=== PATIENT | female | born 1945 | race Caucasian/White ===

== ENCOUNTER 2017-09-18 19:23 | Observation (INO) | payer MEDICARE, OTHER ==
[2017-09-18] MEDS ORDERED: Sodium Chloride 0.9% 10 ML Syringe FLUSH PRN (19:31)
[2017-09-18] MEDS ORDERED: Sodium Chloride 0.9% 1,000 ML IV ONE (19:31)
[2017-09-18] MEDS ORDERED: Ondansetron 4 MG/2 ML SDV IVPUSH ONE (19:31)
--- NOTE | 2017-09-18 19:43 | EDM.PDOC ---
ED HPI GENERAL MEDICAL PROBLEM - General Chief Complaint: Abdominal Pain Stated Complaint: Epigastric pain, nausea Time Seen by Provider: 09/18/17 19:25 Source of Information: Reports: Patient, Family, RN, RN Notes Reviewed History Limitations: Reports: No Limitations - History of Present Illness INITIAL COMMENTS - FREE TEXT/NARRATIVE: Patient presents the emergency room at [facility] with an acute onset of epigastric abdominal pain that started around 6 PM this evening. The patient states that she felt nauseated and did have some dry heaving. The patient did take 2 baby aspirin as well as some Tums. The patient states she has not helped his pain in the past. 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 The patient also has a history of a cholecystectomy. The patient does not have any focal neurological deficits. The patient denies any shortness of breath. The patient denies any cardiac history. The patient denies any diarrhea. No UTI symptoms. Otherwise no other concerns. Onset: Today, Sudden Onset Date: 09/18/17 Onset Time: 18:00 Duration: Resolved Prior to Arrival Location: Reports: Abdomen (Epigastric) Quality: Reports: Burning Severity: Moderate Improves with: Reports: Rest Worsens with: Reports: None Associated Symptoms: Reports: Nausea/Vomiting Treatments BUSINESS ACCOUNT LEADER: Reports: Other (see below) (ASA and TUMS) Epigastric Pain Score (Numeric/FACES): 1 - Related Data Allergies Allergy/AdvReac Type Severity Reaction Status Date / Time alendronate sodium Allergy Swelling Verified 09/18/17 19:51 [From Fosamax] ED ROS GENERAL - Review of Systems Review Of Systems: See Below Constitutional: Denies: Fever, Chills, Weakness Respiratory: Denies: Shortness of Breath, Cough Cardiovascular: Denies: Chest Pain, Palpitations GI/Abdominal: Reports: Abdominal Pain (Epigastric), Nausea, Vomiting Skin: Reports: No Symptoms Neurological: Reports: No Symptoms ED EXAM, GI/ABD - Physical Exam Exam: See Below Exam Limited By: No Limitations General Appearance: Alert, No Apparent Distress Respiratory/Chest: No Respiratory Distress, Lungs Clear, Normal Breath Sounds Cardiovascular: Normal Peripheral Pulses, Regular Rate, Rhythm GI/Abdominal Exam: Soft, Guarding, Tender (Epigastric), Abnormal Bowel Sounds ( Hypoactive) Neurological: Alert, Oriented Skin Exam: Warm, Dry, Intact, Normal Color, No Rash EKG INTERPRETATION EKG Date: 09/18/17 Time: 19:26 Rhythm: NSR Rate (Beats/Min): 91 [place]: Normal P-Wave: Present QRS: Normal ST-T: Depressed QT: Normal ME/PQ Interval: 0.16 Comparison: NA - No Prior EKG EKG Interpretation Comments: 1. Sinus Rhythm with frequent PVC's 2. Possible left atrial enlargement 3. Moderate ST depression EKG #2: 1. Sinus Rhythm with occasional PVC 2. Possible left atrial enlargement 3. Septal TX, probably old Course - Vital Signs Last Recorded V/S: Last Vital Signs Temp 37.7 C 09/18/17 19:25 Pulse 91 09/18/17 19:25 Resp 20 09/18/17 19:25 BP 139/67 09/18/17 19:25 Pulse Ox 95 09/18/17 19:25 - Orders/Labs/Meds Orders: Active Orders 24 hr Category Date Time Status EKG 12 Lead [EKG Documentation Completion] [RC] STAT Care 09/18/17 19:32 Active EKG 12 Lead [EKG Documentation Completion] [RC] STAT Care 09/18/17 21:19 Active Chest 2V [CR] Stat Exams 09/18/17 19:32 Ordered Sodium Chloride 0.9% [Saline Flush] Med 09/18/17 19:31 Active 10 ml FLUSH ASDIRECTED PRN Peripheral IV Insertion Adult [OM.PC] Routine Oth 09/18/17 19:31 Ordered Medication Orders Sodium Chloride (Saline Flush) 10 ml FLUSH ASDIRECTED PRN PRN Reason: Keep Vein Open Labs: Laboratory Tests 09/18/17 09/18/17 Range/Units 20:02 20:02 WBC 10.5 H (4.0-10.0) x10^3/uL RBC 4.71 (4.00-5.50) x10^6/uL Hgb 14.0 (12.0-16.0) g/dL Hct 41.9 (33.0-47.0) % MCV 89.0 (78.0-93.0) fL MCH 29.7 (26.0-32.0) pg MCHC 33.4 (32.0-36.0) g/dL RDW Coeff of Ruben 13.5 (10.0-15.0) % Plt Count 212 (130-400) x10^3/uL Neut % (Auto) 86.9 H (50.0-80.0) % Lymph % (Auto) 6.5 L (25.0-50.0) % [place] % (Auto) 5.9 (2.0-11.0) % Eos % (Auto) 0.6 (0.0-4.0) % Baso % (Auto) 0.1 L (0.2-1.2) % Sodium 139 (136-145) mmol/L Potassium 4.6 (3.5-5.1) mmol/L Chloride 104 (98-107) mmol/L Carbon Dioxide 26 (21-32) mmol/L BUN 27 H (7-18) mg/dL Creatinine 1.1 H (0.55-1.02) mg/dL Est Cr Clr Drug Dosing 36.56 mL/min Estimated GFR (MDRD) 49 Glucose 114 H (74-106) mg/dL Calcium 8.0 L (8.5-10.1) mg/dL Magnesium 1.8 (1.8-2.4) mg/dL Creatine Kinase 141 (26-192) U/L Creatine Kinase Index 1.1 (0.0-4.0) % CK-MB (CK-2) 1.5 (0.0-3.6) ng/mL Troponin I 0.057 H* (<=0.056) ng/mL Amylase 56 (25-115) U/L Lipase 75 (73-393) U/L Meds: Medications Generic Name Dose Route Start Last Admin Trade Name Freq PRN Reason Stop Dose Admin Sodium Chloride 10 ml 09/18/17 19:31 Saline Flush FLUSH ASDIRECTED PRN Keep Vein Open Discontinued Medications Generic Name Dose Route Start Last Admin Trade Name Freq PRN Reason Stop Dose Admin Sodium Chloride 1,000 mls @ 999 mls/hr 09/18/17 19:31 09/18/17 20:05 Normal Saline IV 09/18/17 20:31 999 mls/hr ONETIME ONE Administration Ondansetron HCl 4 mg 09/18/17 19:31 09/18/17 20:15 Zofran IVPUSH 09/18/17 19:32 4 mg ONETIME ONE Administration - Radiology Interpretation Free Text/Narrative:: CXR: No acute process - see scanned report in EMR Departure - Departure Time of Disposition: 22:45 Disposition: Refer to Observation Condition: Good Clinical Impression: Elevated troponin Chest pain Qualifiers: Chest pain type: unspecified Qualified Code(s): R07.9 - Chest pain, unspecified - Discharge Information ED Communication - ED Communication Date/Time Date: 09/18/17 Time Called: 21:57 - Discussed Case With (1) Discussed Case With (1): Outpatient Provider (Dr. Mckenzie, Practical Nurse Clinical Coordinator. Recommend monitoring patient on observation with labs/EKG) - Problem List Review Problem List Initiated/Reviewed/Updated: Yes - My Orders Last 24 Hours: My Active Orders 09/18/17 19:31 Sodium Chloride 0.9% [Saline Flush] 10 ml FLUSH ASDIRECTED PRN Peripheral IV Insertion Adult [OM.PC] Routine 09/18/17 19:32 EKG 12 Lead [EKG Documentation Completion] [RC] STAT Chest 2V [CR] Stat 09/18/17 21:19 EKG 12 Lead [EKG Documentation Completion] [RC] STAT - Assessment/Plan Admission H&P: Please use this note as an admission H&P Last 24 Hours: My Active Orders 09/18/17 19:31 Sodium Chloride 0.9% [Saline Flush] 10 ml FLUSH ASDIRECTED PRN Peripheral IV Insertion Adult [OM.PC] Routine 09/18/17 19:32 EKG 12 Lead [EKG Documentation Completion] [RC] STAT Chest 2V [CR] Stat 09/18/17 21:19 EKG 12 Lead [EKG Documentation Completion] [RC] STAT Plan: Patient will be admitted observation room 204 for chest pain R/O TX. Monitor serial labs with EKG. Patient aware and agrees to admission.
[2017-09-19] MEDS ORDERED: PENTOSAN POLYSULFATE SODIUM PO PRN (01:56)
[2017-09-19] MEDS ORDERED: Nitroglycerin 0.4 MG Tab.SL SL PRN (01:57)
[2017-09-19] MEDS ORDERED: Morphine 4 MG/ML Syringe IVPUSH PRN (01:57)
[2017-09-19] MEDS ORDERED: Ondansetron 4 MG Tab.DIS PO PRN (01:57)
[2017-09-19] MEDS: Enoxaparin 80 MG/0.8 ML Syringe SUBCUT SCH ×2 (02:00→11:20)
--- NOTE | 2017-09-19 02:07 | PCM.HP ---
H&P History of Present Illness - General Date of Service: 09/18/17 Admit Problem/Dx: Admission Diagnosis/Problem Admission Diagnosis/Problem Chest pain R/O [place] Elevated Troponin Source of Information: Patient, Family, RN, RN Notes Reviewed History Limitations: Reports: No Limitations - History of Present Illness Initial Comments - Free Text/Narative: Patient presented to the ED at [facility] this evening complaining of epigastric pain that started around 6pm. Patient states she took to baby ASA and tums, but this did not help. She states the pain lasted from 45m minutes. She continued to not feel well. She became nauseated, so she brought herself to the ED. Patient remained stable in the ED. IV access started. Patient was given IVF and Zofran. Troponin came back elevated, therefore she was admitted for serial monitoring of her Trops and EKG. Case was discussed with Dr. Reece, Cardiology [facility]. Symptom Onset Date: 09/18/17 Duration of Symptoms: Reports: Waxing/Waning Location: Reports: Chest, Abdomen Quality: Reports: Pressure, Throbbing Severity: Mild Epigastric Pain Score (Numeric/FACES): 1 - Related Data Allergies/Adverse Reactions: Allergies Allergy/AdvReac Type Severity Reaction Status Date / Time alendronate sodium Allergy Swelling Verified 09/18/17 19:51 [From Fosamax] Home Medications: Home Meds Ergocalciferol (Vitamin D2) [Vitamin D2] 1 each PO WEEKLY 09/19/17 [History] Pentosan Polysulfate Sodium [Elmiron] 1 tab PO DAILY PRN 09/19/17 [History] Simvastatin [Zocor] 1 tab PO DAILY 09/19/17 [History] Solifenacin Succinate [Vesicare] 1 tab PO DAILY PRN 09/19/17 [History] Valsartan/Hydrochlorothiazide [Diovan Hct 160-12.5 mg Tab] 160 mg PO DAILY 09/19 [History] Past Medical History Genitourinary History: Reports: None Musculoskeletal History: Reports: None Neurological History: Reports: None Hematologic History: Reports: B12 Deficiency Oncologic (Cancer) History: Reports: Breast - Past Surgical History GI Surgical History: Reports: Bariatric Procedure, Cholecystectomy, Colonoscopy Female Surgical History: Reports: Breast Biopsy, Cystoscopy Neurological Surgical History: Reports: Laminectomy Other Neurological Surgeries/Procedures: lumbar laminectomy Musculoskeletal Surgical History: Reports: Arthroscopic Procedure Other Musculoskeletal Surgeries/Procedures:: shoulder Oncologic Surgical History: Reports: Lumpectomy Dermatological Surgical History: Reports: None Social & Family History - Family History Cardiac: Reports: Hypertension Musculoskeletal: Reports: Other (See Below) Other Musculoskeletal Family History: unspecified Endocrine/Metabolic: Reports: Diabetes, Type I - Tobacco Use Smoking Status *Q: Former Smoker Used Tobacco, but Quit: Yes Month Tobacco Last Used: 08/1977 - Recreational Drug Use Recreational Drug Use: No H&P Review of Systems - Review of Systems: Review Of Systems: See Below General: Denies: Fever, Chills, Weakness Pulmonary: Denies: Shortness of Breath, Cough Cardiovascular: Reports: Chest Pain. Denies: Palpitations Gastrointestinal: Reports: Abdominal Pain, Nausea, Vomiting Skin: Reports: No Symptoms Neurological: Reports: No Symptoms. Denies: Dizziness, Headache Exam - Exam Exam: See Below - Vital Signs Vital Signs: Last Vital Signs Temp 36.7 C 09/18/17 23:35 Pulse 64 09/18/17 23:35 Resp 16 09/18/17 23:35 BP 148/67 H 09/18/17 23:35 Pulse Ox 98 09/18/17 23:35 Weight: 74.843 kg - Exam General: Alert, Oriented, Cooperative Lungs: Clear to Auscultation, Normal Respiratory Effort Cardiovascular: Regular Rate, Regular Rhythm, Normal S1, Normal S2 GI/Abdominal Exam: Normal Bowel Sounds, Soft, Non-Tender Extremities: Normal Inspection Peripheral Pulses: 2+: Radial (L), Radial (R) Skin: Warm, Dry, Intact Neuro Extensive - Mental Status: Alert, Oriented x3 - Patient Data Lab Results Last 24 hrs: Laboratory Results - last 24 hr 09/18/17 Range/Units 23:17 Creatine Kinase 127 (26-192) U/L Creatine Kinase Index 1.0 (0.0-4.0) % CK-MB (CK-2) 1.3 (0.0-3.6) ng/mL Troponin I 0.060 H* (<=0.056) ng/mL Result Diagrams: 09/18/17 20:02 09/18/17 20:02 *Q Meaningful Use (ADM) - VTE *Q VTE Criteria *Q: No risk for falls - Stroke *Q Stroke Criteria *Q: - AMI *Q AMI Criteria *Q: - Problem List (1) Chest pain SNOMED Code(s): 68486883 ICD Code: R07.9 - CHEST PAIN, UNSPECIFIED Status: Acute Priority: High Current Visit: Yes Onset Date: ~09/18/17 Qualifiers: Chest pain type: unspecified Qualified Code(s): R07.9 - Chest pain, unspecified (2) Elevated troponin SNOMED Code(s): 118232356, 458377662 ICD Code: R74.8 - ABNORMAL LEVELS OF OTHER SERUM ENZYMES Status: Acute Priority: Medium Current Visit: Yes Onset Date: ~09/18/17 (3) Essential hypertension SNOMED Code(s): 92085780 ICD Code: I10 - ESSENTIAL (PRIMARY) HYPERTENSION Status: Chronic Priority : Medium Current Visit: No (4) OAB (overactive bladder) SNOMED Code(s): 687641807 ICD Code: N32.81 - OVERACTIVE BLADDER Status: Chronic Priority: Medium Current Visit: No (5) GERD (gastroesophageal reflux disease) SNOMED Code(s): 016091035 ICD Code: K21.9 - GASTRO-ESOPHAGEAL REFLUX DISEASE WITHOUT ESOPHAGITIS Status: Chronic Current Visit: No Qualifiers: Esophagitis presence: without esophagitis Qualified Code(s): K21.9 - Gastro -esophageal reflux disease without esophagitis (6) Mixed hyperlipidemia SNOMED Code(s): 496396399 ICD Code: E78.2 - MIXED HYPERLIPIDEMIA Status: Chronic Priority: Medium Current Visit: No Problem List Initiated/Reviewed/Updated: Yes Orders Last 24hrs: Active Orders 24 hr Category Date Time Status Patient Status [ADT] Routine ADT 09/19/17 01:59 Ordered Ambulate [RC] ASDIRECTED Care 09/19/17 01:59 Ordered Cardiac Education [RC] Click to Edit Care 09/19/17 01:57 Ordered Cardiac Monitoring [RC] . DIRECTED Care 09/19/17 01:57 Ordered EKG 12 Lead [EKG Documentation Completion] [RC] ROUTINE Care 09/19/17 02:00 Active EKG 12 Lead [EKG Documentation Completion] [RC] ROUTINE Care 09/19/17 06:00 Active EKG 12 Lead [EKG Documentation Completion] [RC] STAT Care 09/18/17 23:01 Active Height and Weight [RC] UPON Care 09/19/17 01:59 Ordered Intake and Output [RC] QSHIFT Care 09/19/17 02:00 Ordered May Shower [RC] ASDIRECTED Care 09/19/17 01:59 Ordered Oxygen Therapy [RC] ASDIRECTED Care 09/19/17 01:57 Inactive Oxygen Therapy [RC] PRN Care 09/19/17 01:59 Ordered VTE/DVT Education [RC] PER UNIT ROUTINE Care 09/19/17 01:59 Ordered Vital Signs [RC] Q4H Care 09/19/17 01:59 Ordered 2 Gram Sodium Diet [DIET] Diet 09/19/17 Breakfast Ordered BASIC METABOLIC PANEL,BMP [CHEM] Routine Lab 09/19/17 06:00 Ordered CBC WITH AUTO DIFF [HEME] Routine Lab 09/19/17 06:00 Ordered CK W CKMB [CHEM] Routine Lab 09/19/17 02:00 Ordered CK W CKMB [CHEM] Routine Lab 09/19/17 06:00 Ordered MAGNESIUM [CHEM] Routine Lab 09/19/17 06:00 Ordered TROPONIN I [CHEM] Routine Lab 09/19/17 02:00 Ordered TROPONIN I [CHEM] Routine Lab 09/19/17 06:00 Ordered Aspirin Med 09/19/17 08:00 Ordered 81 mg PO DAILY Enoxaparin [Lovenox] Med 09/18/17 23:45 Active 75 mg SUBCUT Q12H Ergocalciferol (Vitamin D2) [Vitamin D2] Med 09/19/17 02:00 Ordered 1 each PO WEEKLY Morphine Med 09/19/17 01:57 Ordered 4 mg IVPUSH Q10M PRN Nitroglycerin [Nitrostat] Med 09/19/17 01:57 Ordered 0.4 mg SL Q5M PRN Ondansetron [Zofran ODT] Med 09/19/17 01:57 Ordered 4 mg PO Q6H PRN Pentosan Polysulfate Sodium [Elmiron] Med 09/19/17 01:56 Ordered 1 tab PO DAILY PRN Simvastatin [Zocor] Med 09/19/17 08:00 Ordered 1 tab PO DAILY Solifenacin Succinate [Vesicare] Med 09/19/17 01:56 Ordered 1 tab PO DAILY PRN Valsartan/Hydrochlorothiazide [Diovan Hct 160-12.5 mg Med 09/19/17 08:00 Ordered Tab] 160 mg PO DAILY Resuscitation Status Routine Resus Stat 09/19/17 01:59 Ordered Medication Orders Aspirin (Aspirin) 81 mg PO DAILY [facility] Enoxaparin Sodium (Lovenox) 75 mg SUBCUT Q12H [facility] Last Admin: 09/19/17 02:00 Dose: 75 mg Morphine Sulfate (Morphine) 4 mg IVPUSH Q10M PRN PRN Reason: Chest Pain Stop: 09/20/17 01:58 Nitroglycerin (Nitrostat) 0.4 mg SL Q5M PRN PRN Reason: Chest Pain Stop: 09/20/17 01:57 Non-Formulary Medication (Ergocalciferol (Vitamin D2) [Vitamin D2]) 1 each PO WEEKLY [facility] Non-Formulary Medication (Pentosan Polysulfate Sodium [Elmiron]) 1 tab PO DAILY PRN PRN Reason: Other Non-Formulary Medication (Simvastatin [Zocor]) 1 tab PO DAILY [facility] Non-Formulary Medication (Solifenacin Succinate [Vesicare]) 1 tab PO DAILY PRN PRN Reason: Other Non-Formulary Medication (Valsartan/Hydrochlorothiazide [Diovan Hct 160-12.5 Mg Tab]) 160 mg PO DAILY [facility] Ondansetron HCl (Zofran Odt) 4 mg PO Q6H PRN PRN Reason: Nausea/Vomiting Sodium Chloride (Saline Flush) 10 ml FLUSH ASDIRECTED PRN PRN Reason: Keep Vein Open Assessment/Plan Comment:: 71-year-old female patient with a past medical history of essential hypertension , mixed hyperlipidemia, GERD, overactive bladder, was admitted to the observation unit at [facility] for primary diagnosis of chest pain rule out [place] and elevated troponin. The patient will have her serial cardiac enzymes monitored every 3 hours 3. We will also obtain EKGs with the blood work. The patient will be on telemetry. Cardiac chest pain orders have been put into place. The patient is a full code. The patient does wish to be transferred to a high-level care should the need arise. DVT prophylaxis is early ambulation. I do not anticipate the patient being admitted for greater than 48 hours. We will continue the patient's home medications without any changes. We will monitor closely.
[2017-09-19] MEDS ORDERED: Ergocalciferol (Vitamin D2) 50,000 Unit Cap PO SCH (08:00)
[2017-09-19] MEDS ORDERED: Hydrochlorothiazide 12.5 MG Cap PO SCH (08:00)
[2017-09-19] MEDS ORDERED: Losartan 50 MG Tab PO SCH (08:00)
[2017-09-19] MEDS ORDERED: Aspirin 81 MG Tab.Chew PO SCH ×2 (08:00)
--- NOTE | 2017-09-19 11:14 | PCM.DCSUM1 ---
Discharge Summary - Hospital Course HPI Initial Comments: Patient presented to the ED at [facility] this evening complaining of epigastric pain that started around 6pm. Patient states she took to baby ASA and tums, but this did not help. She states the pain lasted from 45m minutes. She continued to not feel well. She became nauseated, so she brought herself to the ED. Patient remained stable in the ED. IV access started. Patient was given IVF and Zofran. Troponin came back elevated, therefore she was admitted for serial monitoring of her Trops and EKG. Patient did not have any further chest pain while on observation. No rhythm issues. Case was discussed with Dr. Reece, Cardiology [facility]. - Discharge Data Discharge Date: 09/19/17 Discharge Disposition: Home, Self-Care 01 Condition: Good - Discharge Diagnosis/Problem(s) (1) Chest pain SNOMED Code(s): 93386615 ICD Code: R07.9 - CHEST PAIN, UNSPECIFIED Status: Acute Priority: High Current Visit: Yes Onset Date: ~09/18/17 Qualifiers: Chest pain type: unspecified Qualified Code(s): R07.9 - Chest pain, unspecified (2) Elevated troponin SNOMED Code(s): 227093666, 091667540 ICD Code: R74.8 - ABNORMAL LEVELS OF OTHER SERUM ENZYMES Status: Acute Priority: Medium Current Visit: Yes Onset Date: ~09/18/17 (3) Essential hypertension SNOMED Code(s): 65613046 ICD Code: I10 - ESSENTIAL (PRIMARY) HYPERTENSION Status: Chronic Priority : Medium Current Visit: No (4) OAB (overactive bladder) SNOMED Code(s): 963674812 ICD Code: N32.81 - OVERACTIVE BLADDER Status: Chronic Priority: Medium Current Visit: No (5) GERD (gastroesophageal reflux disease) SNOMED Code(s): 557162460 ICD Code: K21.9 - GASTRO-ESOPHAGEAL REFLUX DISEASE WITHOUT ESOPHAGITIS Status: Chronic Current Visit: No Qualifiers: Esophagitis presence: without esophagitis Qualified Code(s): K21.9 - Gastro -esophageal reflux disease without esophagitis (6) Mixed hyperlipidemia SNOMED Code(s): 631953808 ICD Code: E78.2 - MIXED HYPERLIPIDEMIA Status: Chronic Priority: Medium Current Visit: No - Patient Summary/Data Operative Procedure(s) Performed: None Consults: None Labs Pending at D/C: None Recommended Follow-up Testing/Procedures: Recommend outpatient cardiac stress test Planned Operative Procedure(s) after DC: None Hospital Course: Overall, patient did well during her observation stay. Patient remained chest pain free and did not require any interventions. Patient did not have any issues with urination or BM's. Ambulating independently in room. Labs normal this AM. - Patient Instructions Diet: Heart Healthy Diet Activity: No Strenuous Activities, Rest and Relax Today Driving: Do Not Drive Showering/Bathing: May Shower Notify Provider of: Increased Pain, Nausea and/or Vomiting - Discharge Plan Home Medications: Home Meds Ergocalciferol (Vitamin D2) [Vitamin D2] 1 each PO WEEKLY 09/19/17 [History] Pentosan Polysulfate Sodium [Elmiron] 1 tab PO DAILY PRN 09/19/17 [History] Simvastatin [Zocor] 1 tab PO DAILY 09/19/17 [History] Solifenacin Succinate [Vesicare] 1 tab PO DAILY PRN 09/19/17 [History] Valsartan/Hydrochlorothiazide [Diovan Hct 160-12.5 mg Tab] 160 mg PO DAILY 09/19 [History] Patient Handouts: Nonspecific Chest Pain Referrals: Vianey Chairez DO [Primary Care Provider] - - Discharge Summary/Plan Comment DC Time >30 min.: No Discharge Summary/Plan Comment: Patient will be discharged home today. No changes with any medications. Recommend cardiac stress test as outpatient for further evaluation of elevated troponin levels. Rest and relax today. No strenuous activities. Patient needs to follow up with PCP within 7 days. - General Info Date of Service: 09/19/17 Admission Dx/Problem (Free Text: Admission Diagnosis/Problem Admission Diagnosis/Problem Chest pain R/O [place] Elevated Troponin Subjective Update: Patient offers no specific complaints. Patient states she feels well and wants to go home. No chest pain. No SOB. No abdominal complaints. Functional Status: Reports: Pain Controlled, Tolerating Diet, Ambulating, Urinating - Review of Systems General: Denies: Fever, Weakness, Chills Pulmonary: Denies: Shortness of Breath, Sputum Cardiovascular: Denies: Chest Pain, Palpitations Gastrointestinal: Denies: Abdominal Pain, Nausea, Vomiting Skin: Reports: No Symptoms Neurological: Reports: No Symptoms. Denies: Dizziness, Headache - Patient Data Vitals - Most Recent: Last Vital Signs Temp 36.5 C 09/19/17 10:00 Pulse 61 09/19/17 10:00 Resp 18 09/19/17 10:00 BP 124/58 L 09/19/17 10:00 Pulse Ox 99 09/19/17 10:00 Weight - Most Recent: 74.843 kg I&O - Last 24 hours: Intake & Output 09/18/17 09/19/17 09/19/17 22:59 06:59 14:59 Intake Total 1000 540 Balance 1000 540 Lab Results - Last 24 hrs: Laboratory Results - last 24 hr 09/18/17 09/19/17 09/19/17 Range/Units 23:17 02:02 06:23 WBC 4.9 (4.0-10.0) x10^3/uL RBC 3.96 L (4.00-5.50) x10^6/uL Hgb 11.6 L D (12.0-16.0) g/dL Hct 35.9 (33.0-47.0) % MCV 90.7 (78.0-93.0) fL MCH 29.3 (26.0-32.0) pg MCHC 32.3 (32.0-36.0) g/dL RDW Coeff of Ruben 13.5 (10.0-15.0) % Plt Count 169 (130-400) x10^3/uL Neut % (Auto) 56.2 (50.0-80.0) % Lymph % (Auto) 30.3 (25.0-50.0) % [place] % (Auto) 10.0 (2.0-11.0) % Eos % (Auto) 3.3 (0.0-4.0) % Baso % (Auto) 0.2 (0.2-1.2) % Sodium (136-145) mmol/L Potassium (3.5-5.1) mmol/L Chloride (98-107) mmol/L Carbon Dioxide (21-32) mmol/L BUN (7-18) mg/dL Creatinine (0.55-1.02) mg/dL Est Cr Clr Drug Dosing mL/min Estimated GFR (MDRD) Glucose (74-106) mg/dL Calcium (8.5-10.1) mg/dL Magnesium (1.8-2.4) mg/dL Creatine Kinase 127 103 (26-192) U/L Creatine Kinase Index 1.0 1.1 (0.0-4.0) % CK-MB (CK-2) 1.3 1.1 (0.0-3.6) ng/mL Troponin I 0.060 H* 0.054 (<=0.056) ng/mL 09/19/17 Range/Units 06:23 WBC (4.0-10.0) x10^3/uL RBC (4.00-5.50) x10^6/uL Hgb (12.0-16.0) g/dL Hct (33.0-47.0) % MCV (78.0-93.0) fL MCH (26.0-32.0) pg MCHC (32.0-36.0) g/dL RDW Coeff of Ruben (10.0-15.0) % Plt Count (130-400) x10^3/uL Neut % (Auto) (50.0-80.0) % Lymph % (Auto) (25.0-50.0) % [place] % (Auto) (2.0-11.0) % Eos % (Auto) (0.0-4.0) % Baso % (Auto) (0.2-1.2) % Sodium 142 (136-145) mmol/L Potassium 4.1 (3.5-5.1) mmol/L Chloride 108 H (98-107) mmol/L Carbon Dioxide 27 (21-32) mmol/L BUN 23 H (7-18) mg/dL Creatinine 1.0 (0.55-1.02) mg/dL Est Cr Clr Drug Dosing 40.22 mL/min Estimated GFR (MDRD) 55 Glucose 88 (74-106) mg/dL Calcium 7.6 L (8.5-10.1) mg/dL Magnesium 1.9 (1.8-2.4) mg/dL Creatine Kinase 93 (26-192) U/L Creatine Kinase Index 1.0 (0.0-4.0) % CK-MB (CK-2) 0.9 (0.0-3.6) ng/mL Troponin I 0.052 (<=0.056) ng/mL Med Orders - Current: Current Medications Aspirin (Aspirin) 81 mg PO DAILY [facility] Last Admin: 09/19/17 07:53 Dose: 81 mg Enoxaparin Sodium (Lovenox) 75 mg SUBCUT Q12H [facility] Last Admin: 09/19/17 02:00 Dose: 75 mg Ergocalciferol (Vitamin D2) 50,000 units PO Q7D [facility] Hydrochlorothiazide (Hydrochlorothiazide) 12.5 mg PO DAILY [facility] Last Admin: 09/19/17 07:54 Dose: 12.5 mg Losartan Potassium (Cozaar) 100 mg PO DAILY [facility] Last Admin: 09/19/17 07:54 Dose: 100 mg Morphine Sulfate (Morphine) 4 mg IVPUSH Q10M PRN PRN Reason: Chest Pain Stop: 09/20/17 01:58 Nitroglycerin (Nitrostat) 0.4 mg SL Q5M PRN PRN Reason: Chest Pain Stop: 09/20/17 01:57 Non-Formulary Medication (Pentosan Polysulfate Sodium [Elmiron]) 1 tab PO DAILY PRN PRN Reason: Other Ondansetron HCl (Zofran Odt) 4 mg PO Q6H PRN PRN Reason: Nausea/Vomiting Simvastatin (Zocor) 20 mg PO BEDTIME [facility] Sodium Chloride (Saline Flush) 10 ml FLUSH ASDIRECTED PRN PRN Reason: Keep Vein Open Solifenacin (Vesicare) 10 mg PO DAILY PRN PRN Reason: Other Discontinued Medications Aspirin (Aspirin) 81 mg PO BEDTIME [facility] Ergocalciferol (Vitamin D2) 50,000 units PO Q7D [facility] Sodium Chloride (Normal Saline) 1,000 mls @ 999 mls/hr IV ONETIME ONE Stop: 09/18/17 20:31 Last Admin: 09/18/17 20:05 Dose: 999 mls/hr Ondansetron HCl (Zofran) 4 mg IVPUSH ONETIME ONE Stop: 09/18/17 19:32 Last Admin: 09/18/17 20:15 Dose: 4 mg Solifenacin (Vesicare) 5 mg PO DAILY PRN PRN Reason: Other - Exam General: Reports: Alert, Oriented, Cooperative, No Acute Distress Lungs: Reports: Clear to Auscultation, Normal Respiratory Effort Cardiovascular: Reports: Regular Rate, Regular Rhythm GI/Abdominal Exam: Normal Bowel Sounds, Soft, Non-Tender Skin: Reports: Warm, Dry, Intact Neurological: Reports: No New Focal Deficit *Q Meaningful Use (DIS) - VTE *Q VTE Criteria *Q: No risk for falls at time of discharge - Stroke *Q Stroke Criteria *Q: - AMI *Q AMI Criteria *Q:
[2017-09-19] MEDS ORDERED: Simvastatin 20 MG Tab PO SCH (20:00)
[2017-09-21] MEDS ORDERED: Ergocalciferol (Vitamin D2) 50,000 Unit Cap PO SCH (08:00)
== END 2017-09-19 11:40 | disposition home or self-care (01) ==
LOC: VM.ED 19:23 → VM.MS 22:45
PROVIDERS: ADMIT Nurse Practitioner Family; ATTEND Nurse Practitioner Family
DX: R07.9 Chest pain, unspecified (principal); R74.8 Abnormal levels of other serum enzymes; N32.81 Overactive bladder; K21.9 Gastro-esophageal reflux disease without esophagitis; E78.2 Mixed hyperlipidemia; Z87.891 Personal history of nicotine dependence; Z82.49 Family history of ischemic heart disease and other diseases of the circulatory system; Z79.82 Long term (current) use of aspirin; Z79.899 Other long term (current) drug therapy; Z88.8 Allergy status to other drugs, medicaments and biological substances; Z98.84 Bariatric surgery status; Z90.49 Acquired absence of other specified parts of digestive tract; Z98.890 Other specified postprocedural states
CPT/HCPCS: 36415; 71046; 80048; 82150; 82550; 82553; 83690; 83735; 84484; 85025; 93005; 96361; 96372; 96374; 99217; 99220; 99285; A9270-GY; G0378; J1650; J2405; J7030

== ENCOUNTER 2024-05-29 21:16 | Emergency (ER) | payer MEDICARE, OTHER ==
[2024-05-29] MEDS ORDERED: Sodium Chloride 0.9% 10 ML Syringe FLUSH PRN (21:18)
[2024-05-29 21:46] LABS: BASOPHILS PERCENT AUTO 0.2 % (0.2-1.2); EOSINOPHILS ABSOLUTE AUTO 0.1 x10^3/uL (0.0-0.5); EOSINOPHILS PERCENT AUTO 1.3 % (0.0-4.0); HEMATOCRIT 37.1 % (33.0-47.0); HEMOGLOBIN 12.7 g/dL (12.0-16.0); IMMATURE GRAN ABSOLUTE AUTO 0.01 x10^3/uL (0.00-0.07); LYMPHOCYTES ABSOLUTE AUTO 1.4 x10^3/uL (1.0-4.8); LYMPHOCYTES PERCENT AUTO 16.2 % (25.0-50.0); MEAN CORPUSCULAR HEMOGLOBIN 30.8 pg (26.0-32.0); MEAN CORPUSCULAR HGB CONC 34.2 g/dL (32.0-36.0); MEAN CORPUSCULAR VOLUME 89.8 fL (78.0-93.0); MONOCYTES PERCENT AUTO 11.6 % (2.0-11.0); NEUTROPHILS ABSOLUTE AUTO 6.3 x10^3/uL (1.8-7.7); NEUTROPHILS PERCENT AUTO 70.6 % (50.0-80.0); PLATELET COUNT,PLT 187 x10^3/uL (130-400); RED BLOOD CELL COUNT 4.13 x10^6/uL (4.00-5.50); WHITE BLOOD CELL COUNT,WBC 8.9 x10^3/uL (4.0-10.0)
[2024-05-29 22:00] LABS: ALANINE AMINOTRANSFERASE,ALT 11 U/L (14-59); ALKALINE PHOSPHATASE 81 U/L (46-116); ANION GAP 12.9 mmol/L (5-15); ASPARTATE AMNIOTRANSFERASE,AST 17 U/L (15-37); BILIRUBIN TOTAL 0.5 mg/dL (0.2-1.0); BLOOD UREA NITROGEN,BUN 21 mg/dL (7-18); CALCIUM 8.1 mg/dL (8.5-10.1); CARBON DIOXIDE,CO2 29 mmol/L (21-32); CHLORIDE,CL 101 mmol/L (98-107); CREATININE 1.1 mg/dL (0.55-1.02); ESTIMATED GFR 51 mL/min (>=60); GLUCOSE RANDOM 90 mg/dL (70-99); LIPASE 17 U/L (19-71); POTASSIUM,K 3.9 mmol/L (3.5-5.1); SODIUM,NA 139 mmol/L (136-145)
== END 2024-05-29 22:23 ==
LOC: VM.ED 21:16
DX: R07.89 Other chest pain (principal); Z90.49 Acquired absence of other specified parts of digestive tract; Z79.899 Other long term (current) drug therapy; Z88.8 Allergy status to other drugs, medicaments and biological substances
CPT/HCPCS: 36415; 71045; 80053; 83690; 84484; 85025; 93005; 93010; 99284; 99285